=== PATIENT | female | born 1965 | race African-American/Black ===

== ENCOUNTER 2019-03-05 14:19 | Outpatient (CLI) | payer OTHER ==
--- NOTE | 2019-03-05 18:25 | RAD ---
RIGHT HIP TWO VIEWS: 03/05/19 Neutral and rotated views are provided. There is severe osteoarthritis in the hip joint with marked j oint space narrowing, large osteophytes, and bony sclerosis. No fracture was seen. There was no area of bony destruction. IMPRESSION: Severe osteoarthritis. POS: HOME
== END 2019-03-05 14:20 | disposition home or self-care (01) ==
LOC: BURRAD 14:19
PROVIDERS: ATTEND Family Medicine
DX: M25.551 Pain in right hip (principal); M16.11 Unilateral primary osteoarthritis, right hip

== ENCOUNTER 2019-09-11 17:40 | Emergency (ER) | payer OTHER ==
[~2019-09-11 17:40] MED LIST: Iopamidol 370 76% 100 ML VIAL ONE
[2019-09-11] MEDS ORDERED: Acetaminophen 500 MG TAB ONE (17:59)
[2019-09-11 18:21] LABS: #Basophils 0.1 thou/uL (0.0-0.2); #Eosinphils 0.1 thou/uL (0.0-0.7); #Lymphocytes 1.9 thou/uL (1.20-3.40); #Monocytes 0.6 thou/uL (0.11-0.59); #Neutrophils 4.2 thou/uL (1.40-6.50); %Eosinophils 1.2 % (0.0-10.0); %Lymphocytes 28.1 % (21.0-51.0); %Monocytes 8.3 % (0.0-10.0); %Neutrophils 61.4 % (42.0-75.0); Hemoglobin 13.4 g/dL (12.0-16.0); Mean Corpuscular HGB CONC 30.2 g/dL (32.0-36.0); Mean Corpuscular Hemoglobin 26.1 pg (27.0-31.0); Mean Corpuscular Volume 86.3 fL (78.0-98.0); Mean Platelet Volume 7.2 fL (7.4-10.4); Platelet Count 256 thou/uL (130-400); RBC Distribution Width 13.4 % (11.5-14.5); Red Blood Cell (RBC) Count 5.12 mill/uL (4.20-5.40); White Blood Cell (WBC) Count 6.9 thou/uL (4.8-10.8)
[2019-09-11 18:39] LABS: ALT (SGPT) 10 U/L (8-55); AST (SGOT) 18 U/L (5-34); Albumin 4.2 g/dL (3.5-5.0); Alkaline Phosphatase 102 U/L (40-110); Anion Gap 16 mmol/L (10-20); BUN (Urea Nitrogen) 17 mg/dL (9.8-20.1); Bilirubin, Total 0.3 mg/dL (0.2-1.2); Calc. Creatinine Clearance 0 mL/min (70-130); Calcium 10.1 mg/dL (7.8-10.44); Carbon Dioxide 25 mmol/L (22-29); Chloride 104 mmol/L (98-107); Estimated GFR-MDRD 66; Globulin 3.7 g/dL (2.4-3.5); Glucose 109 mg/dL (70-105); Lipase 22 U/L (8-78); Potassium 4.5 mmol/L (3.5-5.1); Protein, Total 7.9 g/dL (6.0-8.3); Sodium 140 mmol/L (136-145)
[2019-09-11] MEDS ORDERED: Lorazepam 2 MG/ML VIAL ONE (19:08)
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
== END 2019-09-11 20:12 | disposition home or self-care (01) ==
LOC: BURERS 17:40
DX: S22.42XA Multiple fractures of ribs, left side, initial encounter for closed fracture (principal); M19.90 Unspecified osteoarthritis, unspecified site; I10 Essential (primary) hypertension; V89.2XXA Person injured in unspecified motor-vehicle accident, traffic, initial encounter
CPT/HCPCS: 71260; 74177; 80053; 83690; 85025; 96374; J2060; Q9967

== ENCOUNTER 2019-10-10 12:02 | Emergency (ER) | payer OTHER ==
[2019-10-10] MEDS ORDERED: traMADol HCl 50 MG TAB ONE (12:38)
[2019-10-10] MEDS ORDERED: Ibuprofen 800 MG TAB ONE (12:38)
[2019-10-10 12:42] LABS: Bilirubin Negative (Negative); Blood, Urine Small (Negative); Clarity Clear (Clear); Glucose, Urine (Dipstick) Negative (Negative); Leukocyte Negative (Negative); Nitrite Negative (Negative); Protein, Urine (Dipstick) Negative (Neg-Trace); Urobilinogen 0.2 mg/dL (Less than 2)
[2019-10-10 12:44] LABS: Bacteria/HPF 1+ HPF (None Seen); Mucous/LPF 1+ LPF (<2+); RBC/HPF 0-3 HPF (0-3); Squamous Epithelial 0-3 HPF (0-3); WBC/HPF 0-3 HPF (0-3)
[2019-10-10] MEDS ORDERED: Phenazopyridine HCl 97.5 MG TABLET ONE (13:06)
[2019-10-10] MEDS ORDERED: Sulfameth/Trimethoprim DS 800-160mg TAB ONE (13:06)
== END 2019-10-10 13:00 | disposition home or self-care (01) ==
LOC: BURERS 12:02
DX: N39.0 Urinary tract infection, site not specified (principal); R10.30 Lower abdominal pain, unspecified; I10 Essential (primary) hypertension
CPT/HCPCS: 81003; 81015; 87086; 99284